=== PATIENT | female | born 1975 | race Caucasian/White ===

== ENCOUNTER 2022-02-14 14:18 | Outpatient (CLI) | payer OTHER, SELFPAY ==
--- NOTE | 2022-02-14 14:40 | CRLHL7_ITS ---
For Patients: As a result of the Century Cures Act, medical imaging exams and procedure reports are released immediately into your electronic medical record. You may view this report before your referring provider. If you have questions, please contact your health care provider. BILATERAL SCREENING MAMMOGRAM WITH COMPUTER-AIDED DETECTION AND TOMOSYNTHESIS TECHNIQUE: CC and MLO views were obtained. These mammographic images have been obtained using full-field digital technique. These mammographic images were interpreted with the benefit of computer-aided detection. Breast Tomosynthesis was used in this interpretation. COMPARISON FILM: 02/10/21; 12/18/19; 08/05/18 FINDINGS: There are scattered areas of fibroglandular density IMPRESSION: There is no radiographic evidence for malignancy. ASSESSMENT: BI-RADS Category 1: Negative RECOMMENDATION: Routine screening mammogram in 1 year. A lay language report of this examination will be provided to the patient. Sulaiman Garnica M.D. Diagnostic/Musculoskeletal Radiologist [email or web address] BRADLY/jerman Transcribed: 1:56 p.m. PT/Dictated by: Sulaiman Garnica MD @ 02/15/2022 8:34:00 AM (Electronically Signed)
== END 2022-02-14 14:19 | disposition home or self-care (01) ==
PROVIDERS: PCP Physician Assistant Medical; Visit Provider Physician Assistant Medical
DX: Z12.31 Encounter for screening mammogram for malignant neoplasm of breast (principal)
CPT/HCPCS: 77063; 77067

== ENCOUNTER 2022-08-07 09:08 | Outpatient (CLI) | payer OTHER, SELFPAY ==
--- NOTE | 2022-08-07 09:15 | CRLHL7_ITS ---
For Patients: As a result of the Century Cures Act, medical imaging exams and procedure reports are released immediately into your electronic medical record. You may view this report before your referring provider. If you have questions, please contact your health care provider. 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 INDICATION FOR BREAST MRI: Screening breast MRI in this high-risk woman. COMPARISON STUDIES: Mammogram 02/14/2022. CONTRAST: 15 cc of Dotarem. TECHNIQUE: The patient was positioned prone using a breast coil. Multiple imaging sequences were obtained using 1-1.5 mm thick slices with no gap. The image sequences include T2-weighted STIR in the axial plane, T1-weighted nonfat-saturated gradient echo in the axial plane, pre- and post-contrast T1-weighted FLASH 3D with fat suppression in the axial plane, and T1-weighted FLASH high resolution 3D with fat suppression in the sagittal plane. Image post-processing was performed on a [employer] workstation. Complex 3D rendering including maximum intensity projections (MIPS) and volumetric renderings were obtained to optimize visualization of the extent of pathology and relationship to the nipple, skin, and chest wall. This aids in determining feasibility of breast conservation surgery. Subtraction, multiplanar reconstruction, mean curve determination, and angiogenesis mapping were also performed. The study was technically adequate. FINDINGS: Amount of Fibroglandular Tissue: Scattered fibroglandular tissue. Breast Background Enhancement: Moderate. RIGHT Breast: No suspicious areas of enhancement. LEFT Breast: No suspicious areas of enhancement. Lymph Nodes: No adenopathy. IMPRESSIONS AND RECOMMENDATIONS: Negative, there is no MRI evidence of malignancy. Continue annual screening mammography and as clinically indicated screening breast MRI. BI-RADS Category 1: Negative Dictated by Karen Aranda MD @ 08/08/2022 1:44:21 PM ABBY/poornima DW/Dictated by: Karen Aranda MD @ 08/08/2022 1:56:00 PM (Electronically Signed)
== END 2022-08-07 09:09 | disposition home or self-care (01) ==
PROVIDERS: PCP Physician Assistant Medical; Visit Provider Physician Assistant
DX: Z12.39 Encounter for other screening for malignant neoplasm of breast (principal); Z15.01 Genetic susceptibility to malignant neoplasm of breast; Z15.02 Genetic susceptibility to malignant neoplasm of ovary; Z15.09 Genetic susceptibility to other malignant neoplasm; Z15.89 Genetic susceptibility to other disease
CPT/HCPCS: 77049; A9575

== ENCOUNTER 2023-02-01 11:15 | Outpatient (CLI) | payer OTHER, SELFPAY ==
--- NOTE | 2023-02-01 11:30 | CRLHL7_ITS ---
For Patients: As a result of the Century Cures Act, medical imaging exams and procedure reports are released immediately into your electronic medical record. You may view this report before your referring provider. If you have questions, please contact your health care provider. BILATERAL SCREENING MAMMOGRAM WITH COMPUTER-AIDED DETECTION AND TOMOSYNTHESIS TECHNIQUE: CC and MLO views were obtained. These mammographic images have been obtained using full-field digital technique. These mammographic images were interpreted with the benefit of computer-aided detection. Breast Tomosynthesis was used in this interpretation. COMPARISON FILM: 02/14/22, 02/10/21, 12/18/19. FINDINGS: There are scattered areas of fibroglandular density IMPRESSION: There is no radiographic evidence for malignancy. ASSESSMENT: BI-RADS Category 1: Negative RECOMMENDATION: Routine screening mammogram in 1 year. A lay language report of this examination will be provided to the patient. Thony Al M.D. Diagnostic Radiologist [email or web address] JENNIFER/Dictated by: Thony Al MD @ 02/02/2023 8:39:00 AM (Electronically Signed)
== END 2023-02-01 11:16 | disposition home or self-care (01) ==
LOC: MAMMO 11:16
PROVIDERS: PCP Physician Assistant Medical; Visit Provider Physician Assistant Medical
DX: Z12.31 Encounter for screening mammogram for malignant neoplasm of breast (principal)
CPT/HCPCS: 77063; 77067

== ENCOUNTER 2023-03-13 16:37 | Outpatient (CLI) | payer OTHER, SELFPAY | END 2023-03-13 16:38 | disposition home or self-care (01) | PROVIDERS: PCP Physician Assistant Medical; Visit Provider Physician Assistant | DX: Z01.419 Encounter for gynecological examination (general) (routine) without abnormal findings (principal); G25.81 Restless legs syndrome; F98.8 Other specified behavioral and emotional disorders with onset usually occurring in childhood and adolescence | CPT/HCPCS: 80076; 82728 ==

== ENCOUNTER 2023-03-22 16:05 | Outpatient (CLI) | payer OTHER, SELFPAY | END 2023-03-22 16:06 | disposition home or self-care (01) | LOC: NFLDREF 03-23 10:54 | PROVIDERS: PCP Physician Assistant Medical; Referring Provider Physician Assistant Medical; Visit Provider Physician Assistant | DX: R94.5 Abnormal results of liver function studies (principal) | CPT/HCPCS: 84450; 84460 ==

== ENCOUNTER 2023-05-21 12:04 | Outpatient (CLI) | payer OTHER, SELFPAY ==
--- NOTE | 2023-05-21 13:06 | W.ANESCHARGE ---
Anesthesia Charges Start Date/Time Anesthesia Start Date: 05/21/23 Anesthesia Start Time: 12:34 Stop Date/Time Anesthesia Stop Date: 05/21/23 Anesthesia Stop Time: 13:02
--- NOTE | 2023-05-21 13:43 | W.ANESCHARGE ---
Anesthesia Charges Start Date/Time Anesthesia Start Date: 05/21/23 Anesthesia Start Time: 12:34 Stop Date/Time Anesthesia Stop Date: 05/21/23 Anesthesia Stop Time: 13:02
== END 2023-05-21 12:05 | disposition home or self-care (01) ==
LOC: OP CLINIC 12:05
PROVIDERS: PCP Physician Assistant Medical; Visit Provider Surgery
DX: Z12.11 Encounter for screening for malignant neoplasm of colon (principal); Z83.719 Family history of colon polyps, unspecified; Z80.0 Family history of malignant neoplasm of digestive organs
CPT/HCPCS: 00812; 45378; J2704

== ENCOUNTER 2023-07-23 11:35 | Outpatient (CLI) | payer OTHER, SELFPAY | END 2023-07-23 11:36 | disposition home or self-care (01) | LOC: NFLDREF 07-25 10:50 | PROVIDERS: PCP Physician Assistant Medical; Referring Provider Physician Assistant Medical; Visit Provider Physician Assistant Medical | DX: R79.89 Other specified abnormal findings of blood chemistry (principal); Z13.220 Encounter for screening for lipoid disorders; Z13.228 Encounter for screening for other metabolic disorders | CPT/HCPCS: 80048; 80061; 84450; 84460 ==

== ENCOUNTER 2023-09-13 12:48 | Outpatient (CLI) | payer OTHER, SELFPAY ==
--- NOTE | 2023-09-13 13:00 | MR_ITS ---
Patient: CHIKA MELENDEZ Facility:?[facility] Patient ID:?[id number] Site Patient ID:?[id number]. 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 COMPARISON STUDIES: 08/07/2022 MRI 02/01/2023, 02/14/2022 mammograms CONTRAST: 15 cc Dotarem TECHNIQUE: The patient was positioned prone using a breast coil. Multiple imaging sequences were obtained using 1-1.5 mm thick slices with no gap. The image sequences include T2-weighted STIR in the axial plane, T1-weighted nonfat-saturated gradient echo in the axial plane, pre- and post-contrast T1-weighted FLASH 3D with fat suppression in the axial plane, and T1-weighted FLASH high resolution 3D with fat suppression in the sagittal plane. Image post-processing was performed on a [employer] workstation. Complex 3D rendering including maximum intensity projections (MIPS) and volumetric renderings were obtained to optimize visualization of the extent of pathology and relationship to the nipple, skin, and chest wall. This aids in determining feasibility of breast conservation surgery. Subtraction, multiplanar reconstruction, mean curve determination, and angiogenesis mapping were also performed. The study was technically adequate. FINDINGS: Amount of Fibroglandular Tissue: Heterogeneous fibroglandular tissue. Breast Background Enhancement: Moderate. Bilateral breasts: Multiple subcentimeter enhancing nodules with a waxing and waning appearance in both breasts as compared with the prior MRI, consistent with background enhancement. Considered benign. Lymph Nodes: No axillary lymphadenopathy. No abnormal internal mammary lymph nodes. IMPRESSIONS AND RECOMMENDATIONS: 1. No MRI evidence of malignancy in either breast. 2. Annual screening mammography is recommended. If clinically indicated, continued screening breast MRI may also be performed, staggered at six-month intervals with screening mammography. BI-RADS Category 1: Negative Dictated by Joellen Paul MD @ 09/15/2023 5:52:52 PM Signed by:?Joellen Paul MD @09/15/2023 6:22:10 PM (Electronic Signature)
--- NOTE | 2023-09-13 14:30 | MR_ITS ---
Patient: CHIKA MELENDEZ Facility:?[facility] R[facility] Patient ID:?[id number] Site Patient ID:?[id number]. Site :?1975 Study:?MRI-Spine Cervical W/O-09/13/2023 3:00:16 PM Ordering Physician:DARISEPTEMBER Final Report: Indication: Right arm weakness. Radiculopathy. Technique: MRI of the cervical spine was performed without the use of intravenous contrast. Comparison: MRI cervical spine 06/13/2012. Findings: The vertebral body heights appear maintained without evidence of fracture. No discrete T1 hypointense marrow infiltrating process. Mild multilevel disc height loss and degeneration. Slight reversal the cervical lordosis. No abnormal cord signal. C2-3: No spinal canal or neural foraminal narrowing. C3-4: Disc bulge results in mild spinal canal narrowing. Mild neural foraminal narrowing secondary to uncovertebral joint and facet hypertrophy. Progressed. C4-5: Disc bulge results in mild spinal canal narrowing. Bwic-yg-ahurufdq right and mild left neural foraminal narrowing secondary to uncovertebral joint and facet hypertrophy. Progressed. C5-6: Disc osteophyte complex results in bbip-qr-efvwvlxh spinal canal narrowing. Moderate left and mild right neural foraminal narrowing secondary to uncovertebral joint and facet hypertrophy. Progressed. C6-7: Disc osteophyte complex results in mzqa-jt-uynkxypj spinal canal narrowing. Moderate neural foraminal narrowing secondary to uncovertebral joint and facet hypertrophy. Progressed. C7-T1: No spinal canal or neural foraminal narrowing. Impression: 1. At C4-5, mild spinal canal with vqfl-zj-okbnggcs right neural foraminal narrowing. 2. At C5-6, mild to moderate spinal canal with moderate left and mild right neural foraminal narrowing. 3. At C6-7, mild to moderate spinal canal with moderate neural foraminal narrowing. 4. No abnormal cord signal. 5. Overall the described degenerative burden has mild to moderately progressed since previous 06/13/2012. Dictated by Isak Coffey MD @ 09/14/2023 8:37:29 AM Signed by:?Isak Coffey MD @09/14/2023 8:37:29 AM (Electronic Signature)
== END 2023-09-13 12:49 | disposition home or self-care (01) ==
LOC: MRI 12:49
PROVIDERS: PCP Physician Assistant Medical; Visit Provider Physician Assistant
DX: M47.22 Other spondylosis with radiculopathy, cervical region (principal); M50.221 Other cervical disc displacement at C4-C5 level; M50.222 Other cervical disc displacement at C5-C6 level
CPT/HCPCS: 72141; 77049; C8908; C8937; A9575

== ENCOUNTER 2023-09-26 15:35 | Outpatient (CLI) | payer OTHER, SELFPAY ==
--- NOTE | 2023-09-26 16:00 | US_ITS ---
Patient: CHIKA MELENDEZ Facility:?[facility] R[facility] Patient ID:?[id number] Site Patient ID:?[id number]. Site :?1975 Study:?US-OB Pelvis TA/TV Pelvic US-09/26/2023 4:47:06 PM Ordering Physician:Bj September Final Report: CLINICAL HISTORY: pelvic pain, dyspareunia TECHNIQUE: 2D hill scale ultrasound. In addition color Doppler and spectral Doppler analysis was performed of the pelvis using a transabdominal and transvaginal approach. Comparison 12/10/2018 FINDINGS: Uterus measures 8.9 x 4.5 x 4.3 cm. No uterine fibroid. Cervical nabothian cysts are present. IUD is present. The right ovary measures 3.4 x 1.7 x 2.3 cm in size and the right ovary measures 2.5 x 1.4 x 1.3 cm. The ovaries demonstrate normal arterial and venous blood flow on color Doppler and spectral Doppler analysis. There are no suspicious fluid collections within the cul-de-sac. IMPRESSION: Normal ovaries. No evidence of torsion, excess pelvic free fluid or adnexal mass. The IUD may be slightly malpositioned within the endometrial canal. Dictated by Thony Al MD @ 09/27/2023 10:38:44 AM Signed by:?Thony Al MD @09/27/2023 10:38:44 AM (Electronic Signature)
== END 2023-09-26 15:36 | disposition home or self-care (01) ==
LOC: US 15:36
PROVIDERS: PCP Physician Assistant Medical; Visit Provider Physician Assistant
DX: R10.2 Pelvic and perineal pain (principal); N94.10 Unspecified dyspareunia; T83.32XA Displacement of intrauterine contraceptive device, initial encounter
CPT/HCPCS: 76830; 76856; 93976

== ENCOUNTER 2024-02-05 13:57 | Outpatient (CLI) | payer OTHER, SELFPAY ==
--- NOTE | 2024-02-05 14:00 | CRLHL7_ITS ---
For Patients: As a result of the Century Cures Act, medical imaging exams and procedure reports are released immediately into your electronic medical record. You may view this report before your referring provider. If you have questions, please contact your health care provider. BILATERAL SCREENING MAMMOGRAM WITH COMPUTER-AIDED DETECTION AND TOMOSYNTHESIS TECHNIQUE: CC and MLO views were obtained. These mammographic images have been obtained using full-field digital technique. These mammographic images were interpreted with the benefit of computer-aided detection. Breast tomosynthesis was used in this interpretation. COMPARISON FILM: 02/01/23, 02/14/22, 02/10/21. FINDINGS: The breasts are heterogeneously dense, which may obscure small masses. IMPRESSION: There is no radiographic evidence for malignancy. ASSESSMENT: BI-RADS Category 1: Negative RECOMMENDATION: Routine screening mammogram in 1 year. A lay language report of this examination will be provided to the patient. THONY BERRY M.D. Diagnostic Radiologist [email or web address] Transcribed: 3:[address]/Dictated by: Thony Berry MD @ 02/06/2024 11:08:00 AM (Electronically Signed)
== END 2024-02-05 13:58 | disposition home or self-care (01) ==
LOC: MAMMO 13:58
PROVIDERS: PCP Physician Assistant Medical; Visit Provider Physician Assistant
DX: Z12.31 Encounter for screening mammogram for malignant neoplasm of breast (principal); R92.2 Inconclusive mammogram
CPT/HCPCS: 77063; 77067

== ENCOUNTER 2024-08-13 14:32 | Outpatient (CLI) | payer OTHER, SELFPAY | END 2024-08-13 14:33 | disposition home or self-care (01) | PROVIDERS: PCP Physician Assistant Medical; Visit Provider Physician Assistant | DX: Z12.39 Encounter for other screening for malignant neoplasm of breast (principal); Z15.01 Genetic susceptibility to malignant neoplasm of breast | CPT/HCPCS: 77049; C8908; C8937; A9575 ==

== ENCOUNTER 2024-10-27 07:39 | Outpatient (CLI) | payer OTHER, SELFPAY | END 2024-10-27 07:40 | disposition home or self-care (01) | LOC: NFLDREF 11-01 19:32 | PROVIDERS: PCP Physician Assistant Medical; Referring Provider Physician Assistant Medical; Visit Provider Physician Assistant Medical | DX: Z00.00 Encounter for general adult medical examination without abnormal findings (principal); R53.82 Chronic fatigue, unspecified; E55.9 Vitamin D deficiency, unspecified; R79.89 Other specified abnormal findings of blood chemistry; R63.5 Abnormal weight gain; F41.9 Anxiety disorder, unspecified; Z13.6 Encounter for screening for cardiovascular disorders; Z13.9 Encounter for screening, unspecified | CPT/HCPCS: 80053; 80061; 82306; 82607; 82728; 84443 ==

== ENCOUNTER 2025-02-06 14:51 | Outpatient (CLI) | payer OTHER, SELFPAY ==
--- NOTE | 2025-02-06 15:00 | CRLHL7_ITS ---
For Patients: As a result of the Century Cures Act, medical imaging exams and procedure reports are released immediately into your electronic medical record. You may view this report before your referring provider. If you have questions, please contact your health care provider. INDICATION: BILATERAL SCREENING MAMMOGRAM, ASYMPTOMATIC 49 Y/O FEMALE COMPARISON: 02/05/2024, 02/01/2023, 02/14/2022 TECHNIQUE: Digital mammogram in CC and MLO projections including computer-aided detection (CAD) and tomosynthesis. BREAST COMPOSITION: There are scattered areas of fibroglandular density. FINDINGS: No suspicious findings. ASSESSMENT: BI-RADS 1 Negative RECOMMENDATION: Annual screening mammogram. A lay language report of this examination will be provided to the patient. Dictated by: Thony Al MD @ 02/10/2025 10:26:58 (Electronically Signed)
== END 2025-02-06 14:52 | disposition home or self-care (01) ==
LOC: MAMMO 14:51
PROVIDERS: PCP Physician Assistant Medical; Visit Provider Physician Assistant
DX: Z12.31 Encounter for screening mammogram for malignant neoplasm of breast (principal)
CPT/HCPCS: 77063; 77067